=== PATIENT | female | born 1975 | race Caucasian/White ===

== ENCOUNTER 2018-07-16 09:48 | Outpatient (CLI) | payer BC ==
--- NOTE | 2018-07-16 12:41 | MRI ---
MRI BRAIN WITH AND WITHOUT CONTRAST: 07/16/18 HISTORY: 43-year-old female with headache, memory loss, and confusion. TECHNIQUE: Multiple sequences obtained in axial, sagittal, and coronal planes; pre and post IV injection of gado linium-based contrast agent: 15 mL Multihance. FINDINGS: The ventricles are normal in size and configuration. There is no major intraaxial signal abnormality , restricted diffusion, abnormal intraaxial enhancement, mass, midline shift or any other mass effect , recent intraaxial hemorrhage, or extraaxial fluid collection. There is a single very small, 0.4 x 0 .2 cm focus of T2 and FLAIR hyperintensity in the lateral aspect of the right frontal lobe subcortica l white matter. This is nonspecific, but is statistically most likely to represent a single focus of minimal chronic ischemic white matter change or migraine lesion. IMPRESSION: Essentially normal. jnr POS: [facility]
== END 2018-07-16 09:49 | disposition home or self-care (01) ==
LOC: BICMRI 09:48
PROVIDERS: ATTEND Psychiatry & Neurology Neurology
DX: G43.719 Chronic migraine without aura, intractable, without status migrainosus (principal)
CPT/HCPCS: 70553

== ENCOUNTER 2021-10-27 12:18 | Inpatient (IN) | payer BC ==
[2021-10-27 13:52] LABS: #Eosinphils 0.1 thou/uL (0.0-0.7); #Lymphocytes 1.7 thou/uL (1.20-3.40); #Monocytes 0.6 thou/uL (0.11-0.59); #Neutrophils 6.8 thou/uL (1.40-6.50); %Basophils 0.3 % (0.0-1.0); %Eosinophils 0.8 % (0.0-10.0); %Lymphocytes 18.1 % (21.0-51.0); %Monocytes 6.3 % (0.0-10.0); %Neutrophils 74.5 % (42.0-75.0); Hemoglobin 14.9 g/dL (12.0-16.0); Mean Corpuscular HGB CONC 33.7 g/dL (32.0-36.0); Mean Corpuscular Hemoglobin 32.6 pg (27.0-31.0); Mean Corpuscular Volume 96.6 fL (78.0-98.0); Mean Platelet Volume 7.5 fL (7.4-10.4); Platelet Count 212 thou/uL (130-400); RBC Distribution Width 11.9 % (11.5-14.5); Red Blood Cell (RBC) Count 4.56 mill/uL (4.20-5.40); White Blood Cell (WBC) Count 9.2 thou/uL (4.8-10.8)
[2021-10-27 14:14] LABS: ALT (SGPT) 121 U/L (8-55); AST (SGOT) 100 U/L (5-34); Albumin 4.7 g/dL (3.5-5.0); Alkaline Phosphatase 54 U/L (40-110); Anion Gap 15 mmol/L (10-20); BUN (Urea Nitrogen) 7 mg/dL (7.0-18.7); Calc. Creatinine Clearance 0 mL/min (70-130); Calcium 9.7 mg/dL (7.8-10.44); Carbon Dioxide 21 mmol/L (22-29); Chloride 103 mmol/L (98-107); Estimated GFR 108; Glucose 100 mg/dL (70-105); Lipase 58 U/L (8-78); Magnesium 2.2 mg/dL (1.6-2.6); Potassium 3.8 mmol/L (3.5-5.1); Protein, Total 8.7 g/dL (6.0-8.3); Sodium 135 mmol/L (136-145)
[2021-10-27] MEDS ORDERED: Iopamidol-370 76% 500 ML 1 ML ONE (14:45)
[2021-10-27] MEDS ORDERED: Ondansetron PF 4 MG/2 ML Vial ONE (15:09)
[2021-10-27] MEDS ORDERED: Morphine 4 MG/ML VIAL ONE ×2 (15:09→17:41)
[2021-10-27 15:20] LABS: BHCG - Serum Negative (NEGATIVE); Pregs Control Background? CLEAR/WHITE (CLR/WHITE); Pregs Control Bar Appear? YES (CONTROL BAR)
[2021-10-27] MEDS ORDERED: Ondansetron PF 4 MG/2 ML Vial IVP PRN (16:40)
[2021-10-27] MEDS ORDERED: Acetaminophen 650 MG Suppository PR PRN (16:40)
[2021-10-27] MEDS ORDERED: Ondansetron ODT 4 MG TAB PO PRN (16:40)
[2021-10-27] MEDS ORDERED: Morphine 2 MG/ML VIAL SLOW IVP PRN (16:44)
[2021-10-27] MEDS ORDERED: Fentanyl 100 MCG/2 ML VIAL SLOW IVP SCH (19:45)
[2021-10-27] MEDS: Promethazine 25 MG TAB PO PRN (20:09)
[2021-10-27] MEDS: Lactated Ringer's 1,000 ML IV SCH (20:09)
[2021-10-27] MEDS: methylPREDNISolone Sod Succ 40 MG VIAL IVP SCH (22:44)
[2021-10-27] MEDS: traMADol HCl 50 MG TAB PO PRN (23:13)
[2021-10-27] MEDS: Acetaminophen 325 MG TAB PO PRN (23:14)
[2021-10-28] MEDS: Lactated Ringer's 1,000 ML IV SCH ×3 (04:57→22:26)
[2021-10-28] MEDS: Promethazine 25 MG TAB PO PRN (06:02)
[2021-10-28] MEDS: methylPREDNISolone Sod Succ 40 MG VIAL IVP SCH ×3 (06:02→22:25)
[2021-10-28] MEDS ORDERED: SUMAtriptan Succinate 25 MG TAB PO PRN (06:04)
[2021-10-28 06:12] LABS: #Lymphocytes 1.4 thou/uL (1.20-3.40); #Monocytes 0.3 thou/uL (0.11-0.59); %Basophils 0.3 % (0.0-1.0); %Eosinophils 0.5 % (0.0-10.0); %Lymphocytes 20.9 % (21.0-51.0); %Monocytes 4.1 % (0.0-10.0); %Neutrophils 74.3 % (42.0-75.0); Hemoglobin 13.9 g/dL (12.0-16.0); Mean Corpuscular HGB CONC 33.6 g/dL (32.0-36.0); Mean Corpuscular Hemoglobin 32.6 pg (27.0-31.0); Mean Corpuscular Volume 97.1 fL (78.0-98.0); Mean Platelet Volume 7.8 fL (7.4-10.4); Platelet Count 214 thou/uL (130-400); RBC Distribution Width 11.9 % (11.5-14.5); Red Blood Cell (RBC) Count 4.25 mill/uL (4.20-5.40); White Blood Cell (WBC) Count 6.7 thou/uL (4.8-10.8)
[2021-10-28] MEDS: traMADol HCl 50 MG TAB PO PRN ×2 (07:22→19:01)
[2021-10-28 07:37] LABS: ALT (SGPT) 113 U/L (8-55); AST (SGOT) 103 U/L (5-34); Albumin 4.3 g/dL (3.5-5.0); Alkaline Phosphatase 48 U/L (40-110); Anion Gap 15 mmol/L (10-20); BUN (Urea Nitrogen) 5 mg/dL (7.0-18.7); Bilirubin, Total 0.6 mg/dL (0.2-1.2); Calc. Creatinine Clearance 133 mL/min (70-130); Calcium 9.3 mg/dL (7.8-10.44); Carbon Dioxide 21 mmol/L (22-29); Chloride 105 mmol/L (98-107); Estimated GFR 109; Globulin 3.9 g/dL (2.4-3.5); Glucose 120 mg/dL (70-105); Protein, Total 8.2 g/dL (6.0-8.3); Sodium 137 mmol/L (136-145)
[2021-10-28] MEDS ORDERED: BIOTIN 10 MG PO SCH (09:00)
[2021-10-28] MEDS ORDERED: Estradiol 1 MG TAB PO SCH (09:00)
[2021-10-28] MEDS: Loratadine 10 MG TAB PO SCH (09:37)
[2021-10-28] MEDS: Enoxaparin Sodium 40 MG/0.4 ML SYRINGE SC SCH (11:34)
[2021-10-28] MEDS: Estradiol 1 MG TAB PO SCH (19:57)
[2021-10-28] MEDS: tiZANidine HCl 4 MG TAB PO SCH (19:57)
[2021-10-29] MEDS: traMADol HCl 50 MG TAB PO PRN ×3 (01:17→20:34)
[2021-10-29] MEDS: Lactated Ringer's 1,000 ML IV SCH ×3 (05:24→20:36)
[2021-10-29] MEDS: methylPREDNISolone Sod Succ 40 MG VIAL IVP SCH ×3 (05:24→20:29)
[2021-10-29 07:34] LABS: #Lymphocytes 1.5 thou/uL (1.20-3.40); #Monocytes 0.4 thou/uL (0.11-0.59); #Neutrophils 8.1 thou/uL (1.40-6.50); %Basophils 0.4 % (0.0-1.0); %Eosinophils 0.3 % (0.0-10.0); %Lymphocytes 15.4 % (21.0-51.0); %Monocytes 3.6 % (0.0-10.0); %Neutrophils 80.3 % (42.0-75.0); Hemoglobin 14.5 g/dL (12.0-16.0); Mean Corpuscular HGB CONC 33.8 g/dL (32.0-36.0); Mean Corpuscular Hemoglobin 33.1 pg (27.0-31.0); Mean Platelet Volume 7.9 fL (7.4-10.4); Platelet Count 247 thou/uL (130-400); RBC Distribution Width 11.7 % (11.5-14.5); Red Blood Cell (RBC) Count 4.39 mill/uL (4.20-5.40)
[2021-10-29 07:56] LABS: ALT (SGPT) 105 U/L (8-55); AST (SGOT) 77 U/L (5-34); Albumin 4.6 g/dL (3.5-5.0); Alkaline Phosphatase 51 U/L (40-110); Anion Gap 14 mmol/L (10-20); BUN (Urea Nitrogen) 8 mg/dL (7.0-18.7); Bilirubin, Total 0.4 mg/dL (0.2-1.2); Calc. Creatinine Clearance 133 mL/min (70-130); Calcium 9.6 mg/dL (7.8-10.44); Carbon Dioxide 24 mmol/L (22-29); Chloride 105 mmol/L (98-107); Estimated GFR 109; Globulin 3.9 g/dL (2.4-3.5); Glucose 131 mg/dL (70-105); Potassium 3.7 mmol/L (3.5-5.1); Protein, Total 8.5 g/dL (6.0-8.3); Sodium 139 mmol/L (136-145)
[2021-10-29] MEDS: Loratadine 10 MG TAB PO SCH (08:42)
[2021-10-29] MEDS: Enoxaparin Sodium 40 MG/0.4 ML SYRINGE SC SCH (08:43)
[2021-10-29] MEDS: Acetaminophen 325 MG TAB PO PRN (11:49)
[2021-10-29] MEDS: Promethazine 25 MG TAB PO PRN (17:46)
[2021-10-29] MEDS: tiZANidine HCl 4 MG TAB PO SCH (20:29)
[2021-10-29] MEDS: Estradiol 1 MG TAB PO SCH (20:34)
[2021-10-30] MEDS: Lactated Ringer's 1,000 ML IV SCH ×3 (04:59→23:45)
[2021-10-30] MEDS: methylPREDNISolone Sod Succ 40 MG VIAL IVP SCH ×3 (04:59→21:49)
[2021-10-30 06:44] LABS: #Basophils 0.1 thou/uL (0.0-0.2); #Monocytes 0.5 thou/uL (0.11-0.59); %Basophils 0.5 % (0.0-1.0); %Eosinophils 0.3 % (0.0-10.0); %Lymphocytes 20.7 % (21.0-51.0); %Monocytes 5.2 % (0.0-10.0); %Neutrophils 73.2 % (42.0-75.0); Hemoglobin 13.5 g/dL (12.0-16.0); Mean Corpuscular HGB CONC 33.6 g/dL (32.0-36.0); Mean Corpuscular Volume 98.3 fL (78.0-98.0); Platelet Count 240 thou/uL (130-400); White Blood Cell (WBC) Count 9.6 thou/uL (4.8-10.8)
[2021-10-30 07:05] LABS: ALT (SGPT) 95 U/L (8-55); AST (SGOT) 75 U/L (5-34); Alkaline Phosphatase 44 U/L (40-110); Anion Gap 13 mmol/L (10-20); BUN (Urea Nitrogen) 8 mg/dL (7.0-18.7); Bilirubin, Total 0.4 mg/dL (0.2-1.2); Calc. Creatinine Clearance 127 mL/min (70-130); Calcium 9.2 mg/dL (7.8-10.44); Carbon Dioxide 24 mmol/L (22-29); Chloride 107 mmol/L (98-107); Estimated GFR 108; Globulin 3.2 g/dL (2.4-3.5); Glucose 131 mg/dL (70-105); Potassium 3.5 mmol/L (3.5-5.1); Protein, Total 7.2 g/dL (6.0-8.3); Sodium 140 mmol/L (136-145)
[2021-10-30] MEDS: Loratadine 10 MG TAB PO SCH (08:23)
[2021-10-30] MEDS: Enoxaparin Sodium 40 MG/0.4 ML SYRINGE SC SCH (08:24)
[2021-10-30] MEDS: traMADol HCl 50 MG TAB PO PRN (19:53)
[2021-10-30] MEDS: Estradiol 1 MG TAB PO SCH (19:55)
[2021-10-30] MEDS: tiZANidine HCl 4 MG TAB PO SCH (19:56)
[2021-10-31] MEDS: methylPREDNISolone Sod Succ 40 MG VIAL IVP SCH (05:48)
[2021-10-31 06:26] LABS: #Basophils 0.1 thou/uL (0.0-0.2); #Lymphocytes 2.2 thou/uL (1.20-3.40); #Monocytes 0.6 thou/uL (0.11-0.59); #Neutrophils 6.4 thou/uL (1.40-6.50); %Basophils 0.7 % (0.0-1.0); %Eosinophils 0.3 % (0.0-10.0); %Lymphocytes 23.3 % (21.0-51.0); %Monocytes 6.3 % (0.0-10.0); %Neutrophils 69.4 % (42.0-75.0); Hemoglobin 14.9 g/dL (12.0-16.0); Mean Corpuscular HGB CONC 33.5 g/dL (32.0-36.0); Mean Corpuscular Hemoglobin 32.5 pg (27.0-31.0); Mean Corpuscular Volume 97.1 fL (78.0-98.0); Mean Platelet Volume 7.5 fL (7.4-10.4); Platelet Count 286 thou/uL (130-400); Red Blood Cell (RBC) Count 4.57 mill/uL (4.20-5.40); White Blood Cell (WBC) Count 9.2 thou/uL (4.8-10.8)
[2021-10-31 06:46] LABS: ALT (SGPT) 177 U/L (8-55); AST (SGOT) 130 U/L (5-34); Albumin 4.6 g/dL (3.5-5.0); Alkaline Phosphatase 49 U/L (40-110); Anion Gap 14 mmol/L (10-20); BUN (Urea Nitrogen) 7 mg/dL (7.0-18.7); Bilirubin, Total 0.5 mg/dL (0.2-1.2); Calc. Creatinine Clearance 127 mL/min (70-130); Calcium 9.8 mg/dL (7.8-10.44); Carbon Dioxide 24 mmol/L (22-29); Chloride 106 mmol/L (98-107); Estimated GFR 108; Globulin 3.7 g/dL (2.4-3.5); Glucose 87 mg/dL (70-105); Potassium 3.6 mmol/L (3.5-5.1); Protein, Total 8.3 g/dL (6.0-8.3); Sodium 140 mmol/L (136-145)
[2021-10-31] MEDS: Enoxaparin Sodium 40 MG/0.4 ML SYRINGE SC SCH (07:58)
[2021-10-31] MEDS: Lactated Ringer's 1,000 ML IV SCH ×3 (07:58→20:54)
[2021-10-31] MEDS: Loratadine 10 MG TAB PO SCH (07:59)
[2021-10-31] MEDS ORDERED: predniSONE 20 MG TAB PO SCH (11:30)
[2021-10-31 16:22] LABS: HBCM Index 0.09 S/CO (0-0.79); HBSAg Index 0.36 S/CO (0-0.99); Hep A IgM AB Non-Reactive (NonReactive); Hep A IgM S/CO 0.19 S/CO (0-0.79); Hep B Surf Ag Non-Reactive S/CO (NonReactive); Hep C IgG Ab Non-Reactive (NonReactive); Hepatitis B Core IgM Abs Non-Reactive (NonReactive)
[2021-10-31] MEDS: traMADol HCl 50 MG TAB PO PRN (20:47)
[2021-10-31] MEDS: Estradiol 1 MG TAB PO SCH (20:48)
[2021-10-31] MEDS: tiZANidine HCl 4 MG TAB PO SCH (20:48)
[2021-11-01 06:38] LABS: #Basophils 0.1 thou/uL (0.0-0.2); #Eosinphils 0.1 thou/uL (0.0-0.7); #Lymphocytes 3.7 thou/uL (1.20-3.40); #Monocytes 0.8 thou/uL (0.11-0.59); #Neutrophils 5.5 thou/uL (1.40-6.50); %Basophils 0.8 % (0.0-1.0); %Eosinophils 0.7 % (0.0-10.0); %Lymphocytes 36.5 % (21.0-51.0); %Monocytes 7.6 % (0.0-10.0); %Neutrophils 54.5 % (42.0-75.0); Hemoglobin 14.6 g/dL (12.0-16.0); Mean Corpuscular HGB CONC 32.8 g/dL (32.0-36.0); Mean Corpuscular Hemoglobin 31.9 pg (27.0-31.0); Mean Corpuscular Volume 97.2 fL (78.0-98.0); Mean Platelet Volume 7.6 fL (7.4-10.4); Platelet Count 273 thou/uL (130-400); RBC Distribution Width 11.9 % (11.5-14.5); Red Blood Cell (RBC) Count 4.59 mill/uL (4.20-5.40)
[2021-11-01 07:00] LABS: ALT (SGPT) 179 U/L (8-55); AST (SGOT) 131 U/L (5-34); Albumin 4.4 g/dL (3.5-5.0); Alkaline Phosphatase 50 U/L (40-110); Anion Gap 13 mmol/L (10-20); BUN (Urea Nitrogen) 8 mg/dL (7.0-18.7); Bilirubin, Total 0.8 mg/dL (0.2-1.2); Calc. Creatinine Clearance 116 mL/min (70-130); Calcium 9.5 mg/dL (7.8-10.44); Carbon Dioxide 28 mmol/L (22-29); Chloride 101 mmol/L (98-107); Estimated GFR 97; Globulin 3.5 g/dL (2.4-3.5); Glucose 84 mg/dL (70-105); Potassium 3.6 mmol/L (3.5-5.1); Protein, Total 7.9 g/dL (6.0-8.3); Sodium 138 mmol/L (136-145)
[2021-11-01] MEDS: Loratadine 10 MG TAB PO SCH (10:10)
[2021-11-01] MEDS: predniSONE 20 MG TAB PO SCH (10:10)
[2021-11-01] MEDS: Enoxaparin Sodium 40 MG/0.4 ML SYRINGE SC SCH (10:11)
[2021-11-01] MEDS: Lactated Ringer's 1,000 ML IV SCH ×2 (10:11→15:28)
[2021-11-01 14:22] VITALS: BMI 34.3
[2021-11-01] MEDS ORDERED: tiZANidine HCl 4 MG TAB PO SCH (22:00)
[2021-11-01] MEDS ORDERED: Estradiol 1 MG TAB PO SCH (22:00)
[2021-11-01] MEDS: traMADol HCl 50 MG TAB PO PRN (22:05)
[2021-11-02 07:11] LABS: #Basophils 0.2 thou/uL (0.0-0.2); #Eosinphils 0.2 thou/uL (0.0-0.7); #Lymphocytes 4.4 thou/uL (1.20-3.40); #Monocytes 0.6 thou/uL (0.11-0.59); %Basophils 1.6 % (0.0-1.0); %Eosinophils 1.6 % (0.0-10.0); %Lymphocytes 38.6 % (21.0-51.0); %Monocytes 5.6 % (0.0-10.0); %Neutrophils 52.6 % (42.0-75.0); Mean Corpuscular HGB CONC 33.3 g/dL (32.0-36.0); Mean Corpuscular Hemoglobin 32.3 pg (27.0-31.0); Mean Corpuscular Volume 96.9 fL (78.0-98.0); Mean Platelet Volume 7.5 fL (7.4-10.4); Platelet Count 303 thou/uL (130-400); RBC Distribution Width 11.9 % (11.5-14.5); Red Blood Cell (RBC) Count 4.66 mill/uL (4.20-5.40); White Blood Cell (WBC) Count 11.4 thou/uL (4.8-10.8)
[2021-11-02 07:34] LABS: ALT (SGPT) 209 U/L (8-55); AST (SGOT) 144 U/L (5-34); Albumin 4.3 g/dL (3.5-5.0); Alkaline Phosphatase 48 U/L (40-110); Anion Gap 15 mmol/L (10-20); BUN (Urea Nitrogen) 10 mg/dL (7.0-18.7); Bilirubin, Total 0.9 mg/dL (0.2-1.2); Calc. Creatinine Clearance 117 mL/min (70-130); Calcium 9.6 mg/dL (7.8-10.44); Carbon Dioxide 24 mmol/L (22-29); Chloride 102 mmol/L (98-107); Estimated GFR 99; Globulin 3.6 g/dL (2.4-3.5); Glucose 81 mg/dL (70-105); Protein, Total 7.9 g/dL (6.0-8.3); Sodium 138 mmol/L (136-145)
[2021-11-02 07:42] LABS: Potassium 2.9 mmol/L (3.5-5.1)
[2021-11-02] MEDS: Enoxaparin Sodium 40 MG/0.4 ML SYRINGE SC SCH (08:18)
[2021-11-02] MEDS: predniSONE 20 MG TAB PO SCH (08:20)
[2021-11-02] MEDS: Loratadine 10 MG TAB PO SCH (08:20)
[2021-11-02] MEDS ORDERED: Potassium Chloride 20 MEQ TAB PO SCH (09:15)
[2021-11-02 16:40] LABS: Anion Gap 15 mmol/L (10-20); BUN (Urea Nitrogen) 9 mg/dL (7.0-18.7); Calc. Creatinine Clearance 114 mL/min (70-130); Calcium 9.7 mg/dL (7.8-10.44); Carbon Dioxide 20 mmol/L (22-29); Chloride 103 mmol/L (98-107); Estimated GFR 96; Glucose 124 mg/dL (70-105); Potassium 4.6 mmol/L (3.5-5.1); Sodium 133 mmol/L (136-145)
[2021-11-02 19:15] VITALS: BP 122/86; TEMP 97.7
== END 2021-11-02 19:43 | disposition home or self-care (01) | DRG 386 ==
LOC: ERS 12:18 → T4-A 16:08
PROVIDERS: ADMIT Family Medicine; ATTEND Student in an Organized Health Care Education/Training Program
DX: K50.00 Crohn's disease of small intestine without complications (principal); E87.1 Hypo-osmolality and hyponatremia; F31.9 Bipolar disorder, unspecified; F17.290 Nicotine dependence, other tobacco product, uncomplicated; K21.9 Gastro-esophageal reflux disease without esophagitis; G43.909 Migraine, unspecified, not intractable, without status migrainosus; J30.2 Other seasonal allergic rhinitis; K76.0 Fatty (change of) liver, not elsewhere classified; N80.9 Endometriosis, unspecified; F60.3 Borderline personality disorder; R74.01 Elevation of levels of liver transaminase levels; E87.6 Hypokalemia; Z28.21 Immunization not carried out because of patient refusal; Z98.1 Arthrodesis status; Z88.8 Allergy status to other drugs, medicaments and biological substances; Z90.710 Acquired absence of both cervix and uterus; Z83.3 Family history of diabetes mellitus; Z83.79 Family history of other diseases of the digestive system
CPT/HCPCS: 36415; 36416; 74019; 74177; 76705; 80053; 80074; 83605; 83690; 83735; 84484; 84703; 85025; 93005; 96361; 96374; 96375; 96376; J2270; J2405; J2920; J3010; J7120; J7512; Q0162; Q0169; Q9967

== ENCOUNTER 2022-01-10 12:38 | Outpatient (CLI) | payer BC | END 2022-01-10 12:39 | disposition home or self-care (01) | LOC: BICRAD 12:38 | PROVIDERS: ATTEND Internal Medicine Cardiovascular Disease | DX: R07.9 Chest pain, unspecified (principal) | CPT/HCPCS: 71046 ==

== ENCOUNTER 2023-03-30 08:12 | Outpatient (CLI) | payer BC ==
[2023-03-30] MEDS ORDERED: Iopamidol 370 76% 100 ML VIAL ONE (14:49)
== END 2023-03-30 08:13 | disposition home or self-care (01) ==
LOC: CT 08:12
PROVIDERS: ATTEND Physician Assistant Medical
DX: R74.8 Abnormal levels of other serum enzymes (principal); R10.10 Upper abdominal pain, unspecified; K76.0 Fatty (change of) liver, not elsewhere classified
CPT/HCPCS: 74177; Q9967